=== PATIENT | female | born 2005 | race African-American/Black ===

== ENCOUNTER 2023-11-10 17:18 | Emergency (ER) | payer MEDICAID ==
[~2023-11-10] VITALS: Ht 162.6 cm; Wt 78.6 kg
[~2023-11-10 17:18] MED LIST: AMOX400S76 PO; [UNRECOGNIZED DRUG - CODE]
[2023-11-10 17:30] VITALS: BP 140/73
[2023-11-10] MEDS ORDERED: CYCL-1 PO (19:54)
[2023-11-10] MEDS: cyclobenzaprine 10mg tablet PO ONE (20:13)
[2023-11-10] MEDS: diazepam 5mg tablet PO ONE (20:13)
[2023-11-10 20:28] VITALS: PULSE 82; RESP 19; TEMP 98.3; O2SAT 99
== END 2023-11-10 20:31 | disposition home or self-care (01) ==
LOC: ER 17:19
DX: M43.6 Torticollis (principal); Z79.899 Other long term (current) drug therapy; Z79.2 Long term (current) use of antibiotics
CPT/HCPCS: 99283

== ENCOUNTER 2024-11-14 19:44 | Emergency (ER) | payer MEDICAID ==
[~2024-11-14] VITALS: Ht 175.3 cm; Wt 67.7 kg
[~2024-11-14 19:44] MED LIST changes: +CYCL-1 PO
[2024-11-14 19:58] VITALS: PULSE 89; RESP 15; O2SAT 100
[2024-11-14] MEDS: predniSONE 20 mg tablet PO ONE (21:56)
[2024-11-14] MEDS ORDERED: GABA300C PO (22:58)
[2024-11-14] MEDS ORDERED: PRED20TA PO (22:58)
[2024-11-14 23:07] VITALS: TEMP 97
== END 2024-11-14 23:10 | disposition home or self-care (01) ==
LOC: ER 19:45
DX: M54.50 Low back pain, unspecified (principal); M25.551 Pain in right hip
CPT/HCPCS: 72100; 99283; J7512